=== PATIENT | female | born 1955 | race Caucasian/White ===

== ENCOUNTER 2017-05-19 19:52 | Emergency (ER) | payer OTHER ==
[~2017-05-19] VITALS: Ht 157.5 cm; Wt 54.0 kg
[~2017-05-19 19:52] MED LIST: CYCL-259 PO; MELO15TA24 PO; NITR100C57 PO; OMEP20TA62 PO; OXYC-302 PO; PROP10TA PO; THYR120T PO; TRAZ150T62 PO
[2017-05-19 20:40] VITALS: BP 103/67
== END 2017-05-19 20:45 | disposition home or self-care (01) ==
LOC: ED 20:40
DX: Z00.00 Encounter for general adult medical examination without abnormal findings (principal); K21.9 Gastro-esophageal reflux disease without esophagitis
CPT/HCPCS: 99283

== ENCOUNTER 2021-01-17 18:02 | Emergency (ER) | payer SELFPAY ==
[~2021-01-17] VITALS: Ht 162.6 cm; Wt 67.0 kg
[~2021-01-17 18:02] MED LIST changes: -CYCL-259 PO; +CYCL10TA2 PO; -OXYC-302 PO; +OXYC1TAB14 PO; -PROP10TA PO; +PROP10TA16 PO
--- NOTE | 2021-01-17 18:12 | NUR ---
BIBA GLF SLIPPED IN PUDDLE UNABLE TO GET UP ON OWN, C-COLLAR AND ON BOARD, MID NECK AND BACK PAIN, HX CERVICAL FUSION AND LUMBAR SURG, 50 MCG FENT 4 ZOFRAN PER EMS, SOME TINGLING IN FINGERS. +PMS. HIT HEAD, NO LOC, NO BLOOD THINNERS, A&OX4 GCS 15. WAS DIZZY AND NAUSEOUS BUT NOW RESOLVED.
--- NOTE | 2021-01-17 18:52 | NUR ---
assumed care from Marie
--- NOTE | 2021-01-17 18:54 | NUR ---
REPORT TO PEGGY WOODSON.
[2021-01-17] MEDS ORDERED: MORPHINE SULFATE 4 MG/ML, 1ML IVPush PRN (19:00)
[2021-01-17] MEDS ORDERED: ALBUTEROL/IPRATROPIUM 2.5MG/0.5MG, 3 ML NPPB ONE (19:00)
[2021-01-17] MEDS ORDERED: ONDANSETRON 2MG/ML, 2ML ONE (19:05)
[2021-01-17] MEDS ORDERED: MORPHINE SULFATE 4 MG/ML, 1ML ONE ×2 (19:06→19:12)
[2021-01-17] MEDS ORDERED: ALBUTEROL SULFATE 2.5 MG/3 ML ONE (19:07)
[2021-01-17] MEDS ORDERED: ALBUTEROL/IPRATROPIUM 2.5MG/0.5MG, 3 ML ONE (19:22)
--- NOTE | 2021-01-17 19:24 | NUR ---
patient taken to CT/XR
[2021-01-17] MEDS ORDERED: ONDANSETRON 2MG/ML, 2ML IVPush ONE (19:30)
[2021-01-17] MEDS ORDERED: DIPHENHYDRAMINE 50 MG/ML, 1ML ONE (21:16)
[2021-01-17 21:22] VITALS: BP 109/62
[2021-01-17] MEDS ORDERED: DIPHENHYDRAMINE 50 MG/ML, 1ML IVPush ONE (21:30)
--- NOTE | 2021-01-17 21:30 | NUR ---
patient left prior to tempature being able to be taken
--- NOTE | 2021-01-17 21:31 | NUR ---
1919 - patient cleared from c-spine from MD in room doing assessment Addendum: 01/17/21 at 2132 by [email or web address] removed c-collar from patient
--- NOTE | 2021-01-17 21:34 | NUR ---
patient had IV from EMS placed prior to this RN starting shift. IV removed, Catheter tip intact
--- NOTE | 2021-01-17 21:34 | NUR ---
patient received IV benadryl before leaving ER. Patient informed that she cannot drive after receiving medication nor should she operate any heavy machinery because it can make her drowsy. Patient understands teaching. Patients in room and confirms that he will be driving her home
== END 2021-01-17 21:34 | disposition home or self-care (01) ==
LOC: ED 18:30
DX: S13.9XXA Sprain of joints and ligaments of unspecified parts of neck, initial encounter (principal); S23.3XXA Sprain of ligaments of thoracic spine, initial encounter; S33.5XXA Sprain of ligaments of lumbar spine, initial encounter; K21.9 Gastro-esophageal reflux disease without esophagitis; Z85.3 Personal history of malignant neoplasm of breast; W01.0XXA Fall on same level from slipping, tripping and stumbling without subsequent striking against object, initial encounter; Y93.89 Activity, other specified; Y92.410 Unspecified street and highway as the place of occurrence of the external cause; Y99.8 Other external cause status
CPT/HCPCS: 72072; 72110; 72125; 94640; 96374; 96375; 99284; J1200; J2270; J2405